=== PATIENT | male | born 1950 | race Hispanic/Latino ===

== ENCOUNTER 2023-04-22 09:32 | Outpatient (CLI) | payer MEDICARE | END 2023-04-22 09:33 | disposition home or self-care (01) | LOC: CSHWCC 09:32 | PROVIDERS: ATTEND Nurse Practitioner Family | DX: L24.A2 Irritant contact dermatitis due to fecal, urinary or dual incontinence (principal); K94.09 Other complications of colostomy | CPT/HCPCS: 99214; G0463 ==

== ENCOUNTER 2023-04-29 10:02 | Outpatient (CLI) | payer MEDICARE | END 2023-04-29 10:03 | disposition home or self-care (01) | LOC: CSHWCC 10:02 | PROVIDERS: ATTEND Nurse Practitioner Family | DX: K94.09 Other complications of colostomy (principal); L24.B3 Irritant contact dermatitis related to fecal or urinary stoma or fistula | CPT/HCPCS: 99213; G0463 ==